=== PATIENT | female | born 1975 | race Caucasian/White ===

== ENCOUNTER 2018-09-08 16:32 | Emergency (ER) | payer MEDICAID ==
[2018-09-08 18:02] LABS: ADD MAN DIFF? NO
[2018-09-08] MEDS: SOD CHLORIDE 0.9% 1,000 ML IV (18:04)
[2018-09-08] MEDS: ONDANSETRON 4 MG INJ IV (18:04)
[2018-09-08 18:05] LABS: BASOPHILS % 0.2 % (0.0-2.0); EOSINOPHILS # 0.1 10^3/ul (0.0-0.5); EOSINOPHILS % 0.7 % (0.0-7.0); HEMOGLOBIN 12.8 g/dl (12.0-16.0); LYMPHOCYTES # 1.5 10^3/ul (0.8-2.9); LYMPHOCYTES % 10.2 % (15.0-51.0); MEAN CORPUSCULAR HEMOGLOBIN 27.2 pg (29.0-33.0); MEAN CORPUSCULAR HGB CONC 33.7 g/dl (32.0-37.0); MEAN CORPUSCULAR VOLUME 80.9 fl (82.0-101.0); MEAN PLATELET VOLUME 9.9 fl (7.4-10.4); MONOCYTE # 0.9 10^3/ul (0.3-0.9); NEUTROPHIL # 12.4 10^3/ul (1.6-7.5); NEUTROPHILS % 82.4 % (39.0-77.0); PLATELET COUNT 307 10^3/UL (140-415); RED CELL DISTRIBUTION WIDTH 13.7 % (11.5-14.5)
[2018-09-08 18:09] LABS: ADD UMIC YES; UR ASCORBIC ACID NEGATIVE (NEGATIVE); UR BACTERIA FEW /HPF (NONE SEEN); UR BILIRUBIN (Dip) NEGATIVE (NEGATIVE); UR BLOOD (Dip) 1+ mg/dL (NEGATIVE); UR CLARITY CLEAR (CLEAR); UR COLOR STRAW (YELLOW); UR GLUCOSE (Dip) NEGATIVE (NEGATIVE); UR KETONES (Dip) 1+ mg/dL (NEGATIVE); UR LEUKOCYTE ESTERASE (Dip) NEGATIVE Leu/ul (NEGATIVE); UR NITRITE (Dip) NEGATIVE (NEGATIVE); UR RBC 2 /HPF (0-5); UR SPECIFIC GRAVITY (Dip) 1.004 (1.003-1.030); UR SQUAMOUS EPITHELIAL CELL FEW /HPF (FEW); UR TOTAL PROTEIN (Dip) NEGATIVE (NEGATIVE); UR UROBILINOGEN (Dip) 1+ mg/dL (NEGATIVE); UR WBC 1 /HPF (0-5)
[2018-09-08 18:22] LABS: ALANINE AMINOTRANSFERASE 14 IU/L (13-69); ALBUMIN/GLOBULIN RATIO 1.17; ALKALINE PHOSPHATASE 79 IU/L (42-121); ANION GAP 8 (5-13); ASPARTATE AMINO TRANSFERASE 24 IU/L (15-46); BLOOD UREA NITROGEN 3 mg/dl (7-20); CARBON DIOXIDE 27 mmol/L (21-31); CHLORIDE 101 mmol/L (97-110); CREATININE 0.49 mg/dl (0.44-1.00); Estimated GFR > 60 mL/min (>60); GLUCOSE 135 mg/dl (70-220); LIPASE 198 U/L (23-300); POTASSIUM 3.4 mmol/L (3.5-5.1); SODIUM 136 mmol/L (135-144); TOTAL PROTEIN 7.4 g/dl (6.1-8.1)
[2018-09-08] MEDS: KETOROLAC 15 MG INJ IV (18:57)
[2018-09-08] MEDS: FAMOTIDINE 20 MG INJ IV (18:57)
[2018-09-08] MEDS: BELLADONNA/PHENOBARBITAL TAB PO (18:57)
[2018-09-08] MEDS: LIDOCAINE/MYLANTA 40 ML BTL PO (18:57)
== END 2018-09-08 21:12 | disposition home or self-care (01) ==
LOC: E/R 16:32
DX: D72.829 Elevated white blood cell count, unspecified (principal); E87.6 Hypokalemia; R11.0 Nausea
CPT/HCPCS: 36415; 80053; 81001; 81025; 83690; 85025; 96374; 96375; 99284-25